=== PATIENT | male | born 1955 | race Caucasian/White ===

== ENCOUNTER 2021-02-23 20:34 | Emergency (ER) | payer OTHER ==
[~2021-02-23] VITALS: Ht 170.2 cm; Wt 63.5 kg
--- NOTE | 2021-02-23 20:39 | NUR ---
PATIENT WAS CALLED TO BE TRIAGED BUT WAS NOT PRESENT IN THE WAITING ROOM OR OUTSIDE OF ER.
--- NOTE | 2021-02-23 20:50 | NUR ---
PATIENT PLACED IN HALLWAY AFTER BEING TRIAGED DUE TO NO BEDS AVAILABLE.
[2021-02-23] MEDS ORDERED: OXYCODONE/APAP 5-325 MG TABLET PO ONE (21:15)
[2021-02-23] MEDS ORDERED: OXYCODONE/APAP 5-325 MG TABLET ONE (21:46)
[2021-02-23] MEDS ORDERED: OXYC-128 PO (23:01)
--- NOTE | 2021-02-23 23:12 | NUR ---
Patient discharged to home in stable condition. Written and verbal after care instructions given. Patient verbalizes understanding of instructions. Stressed follow up or return to ER for worsening s/s.
[2021-02-23 23:13] VITALS: BP 130/77
== END 2021-02-23 23:14 | disposition home or self-care (01) ==
LOC: ER 20:46
DX: J02.8 Acute pharyngitis due to other specified organisms (principal); E78.5 Hyperlipidemia, unspecified; Z20.822 Contact with and (suspected) exposure to COVID-19
CPT/HCPCS: 86403; 87400; A4663